=== PATIENT | male | born 1990 | race Caucasian/White ===

== ENCOUNTER 2016-10-13 19:28 | Emergency (ER) | payer OTHER ==
[~2016-10-13] VITALS: Ht 170.2 cm; Wt 89.8 kg
[2016-10-13 22:10] VITALS: BP 144/96
[2016-10-13] MEDS ORDERED: KETOROLAC TROMETH 60MG/2ML VIAL IM ONE (23:00)
== END 2016-10-13 23:18 | disposition home or self-care (01) ==
LOC: ER 19:33
DX: S80.811A Abrasion, right lower leg, initial encounter (principal); R51 Headache; V43.52XA Car driver injured in collision with other type car in traffic accident, initial encounter; Y93.89 Activity, other specified; Y99.8 Other external cause status; Y92.488 Other paved roadways as the place of occurrence of the external cause; Z88.6 Allergy status to analgesic agent; Z88.8 Allergy status to other drugs, medicaments and biological substances
CPT/HCPCS: 70450; 71020; 72070; 72125; 96372; 99284; J1885